=== PATIENT | female | born 1990 | race Caucasian/White ===

== ENCOUNTER 2017-04-15 16:41 | Inpatient (IN) | payer OTHER ==
[~2017-04-15] VITALS: Ht 167.6 cm; Wt 59.1 kg
[~2017-04-15 16:41] MED LIST: FIORICET,ESG1 TABLET PO; IMITREX25 MG PO; KEFLEX500 MG PO; NOHOMEMEDS; PROMETHAZINE HC25 M1 PO; REGLAN10 MG PO
[2017-04-15] MEDS ORDERED: WELLBUTRIN SR150 MG PO (16:49)
[2017-04-15] MEDS ORDERED: FLUOXETINE HCL20 MG PO (16:50)
[2017-04-15] MEDS ORDERED: GABAPENTIN300 MG PO (16:50)
[2017-04-15] MEDS ORDERED: CLONIDINE HCL0.1 MG PO (16:50)
[2017-04-15 19:06] LABS: BASOPHIL (%) 0.1 % (0-1); EOSINOPHIL (%) 0 % (0-5); HEMATOCRIT 42.6 % (36.0-46.0); IMMATURE GRANULOCYTE (%) 0.4 % (0.0-0.7); LYMPHOCYTE (%) 13.2 % (15-42); LYMPHOCYTE COUNT 1.1 K/uL (1.0-2.8); MCH 28.2 PG (29.0-34.0); MCHC 32.9 G/DL (30.0-36.0); MCV 85.9 FL (83-99); MONOCYTE (%) 3.6 % (3-12); MONOCYTE COUNT 0.3 K/uL (0-0.8); NEUTROPHIL (%) 82.7 % (45-76); NEUTROPHIL COUNT 6.7 K/uL (1.8-6.4); PLATELET COUNT 288 K/uL (156-360); RBC DIS.WIDTH-CV 13.3 % (11.8-14.6); RBC DIS.WIDTH-SD 41.8 % (39-53); RED BLOOD COUNT 4.96 M/uL (3.80-5.20); WHITE BLOOD COUNT 8.1 K/uL (4.1-10.2)
[2017-04-15 19:14] LABS: ALBUMIN 4.2 g/dL (3.2-4.8); CHLORIDE 107 mEq/L (99-109); POTASSIUM 3.9 mEq/L (3.7-5.4); SODIUM 139 mEq/L (136-147)
[2017-04-15 19:16] LABS: GLUCOSE 122 mg/dL (70-99); TOTAL PROTEIN 8.8 g/dL (6.4-8.3)
[2017-04-15 19:18] LABS: TOTAL BILIRUBIN 0.5 mg/dL (0.0-1.0)
[2017-04-15 19:19] LABS: SERUM ETHYL ALCOHOL < 10 mg/dL
[2017-04-15 19:20] LABS: ALKALINE PHOSPHATASE 81 IU/L (3-129); CREATININE 0.7 mg/dL (0.6-1.3); GFR ESTIMATE (CALCULATED) > 59 mL/min/
[2017-04-15 19:21] LABS: AST (GOT) 30 IU/L (2-34); UREA NITROGEN (BUN) 8 mg/dL (9-23)
[2017-04-15 19:23] LABS: ALT (GPT) 42 IU/L (3-49)
[2017-04-15 19:29] LABS: QUANTITATIVE HCG < 4.0 MIU/ML
[2017-04-15 21:04] VITALS: BP 115/59
[2017-04-16 07:47] VITALS: BP 109/61
[2017-04-16 15:55] VITALS: BP 107/55
[2017-04-16 16:27] LABS: BENZODIAZEPINES, URINE SCREEN Negative (200 ng/mL)
[2017-04-17 07:52] VITALS: BP 104/57
[2017-04-17] MEDS ORDERED: DESYREL100 MG PO (11:18)
== END 2017-04-17 14:00 | disposition home or self-care (01) | DRG 897 ==
LOC: EME 16:41 → 1WEST 19:22 → EDOF 19:22 → ENRESERV 20:55 → 1WEST 21:00
PROVIDERS: Emergency Medicine
DX: F11.23 Opioid dependence with withdrawal (principal); R45.851 Suicidal ideations; F13.20 Sedative, hypnotic or anxiolytic dependence, uncomplicated; F43.23 Adjustment disorder with mixed anxiety and depressed mood; F17.210 Nicotine dependence, cigarettes, uncomplicated; G47.00 Insomnia, unspecified; G43.909 Migraine, unspecified, not intractable, without status migrainosus; Z56.0 Unemployment, unspecified
CPT/HCPCS: 80053; 80306 90; 84702; 85025; 90839; 97150 GO; 97165 GO; G0480; Q0169; Q0177

== ENCOUNTER 2017-05-02 17:42 | Emergency (ER) | payer SELFPAY ==
[~2017-05-02] VITALS: Ht 165.1 cm; Wt 68.1 kg
[~2017-05-02 17:42] MED LIST changes: +CLONIDINE HCL0.1 MG PO; +DESYREL100 MG PO; +FLUOXETINE HCL20 MG PO; +GABAPENTIN300 MG PO; +WELLBUTRIN SR150 MG PO
[2017-05-02] MEDS ORDERED: INDOCIN50 MG PO (21:47)
[2017-05-02] MEDS ORDERED: LIDODERM 5% P1 PATCH TD (21:47)
[2017-05-02 22:16] VITALS: BP 119/69
== END 2017-05-02 22:25 | disposition home or self-care (01) ==
LOC: EME 17:42
DX: S92.331A Displaced fracture of third metatarsal bone, right foot, initial encounter for closed fracture (principal); S92.341A Displaced fracture of fourth metatarsal bone, right foot, initial encounter for closed fracture; S39.92XA Unspecified injury of lower back, initial encounter; S29.9XXA Unspecified injury of thorax, initial encounter; W11.XXXA Fall on and from ladder, initial encounter; G89.29 Other chronic pain; Z88.2 Allergy status to sulfonamides
CPT/HCPCS: 72128; 72131; 73630; 99281; 99284; J1885